=== PATIENT | male | born 1955 | race Caucasian/White ===

== ENCOUNTER 2017-01-20 11:27 | Outpatient (CLI) | payer OTHER ==
--- NOTE | 2017-01-20 12:40 | DIAGNOSTIC IMAGING REPORT ---
PROCEDURE: XR CERVICAL SPINE 4 OR 5 VIEW INDICATION: SHOULDER PAIN RIGHT TECHNIQUE: Five views. COMPARISON: None. FINDINGS: Severe spondylosis C6-7 with bilateral foraminal impingement. There is also spondylosis and spondylolisthesis at C4-5 with foraminal impingement on the right. IMPRESSION: 1. Spondylosis C4-5 and C6-7. Foraminal stenosis at C4-5 on the right and bilaterally C 6-7.
--- NOTE | 2017-01-20 13:28 | DIAGNOSTIC IMAGING REPORT ---
PROCEDURE: XR SHOULDER 2 OR MORE VW-RIGHT INDICATION: SHOULDER PAIN RIGHT TECHNIQUE: Three views. COMPARISON: None. FINDINGS: Severe right glenohumeral osteoarthritis. No fracture or dislocation. IMPRESSION: 1. Severe glenohumeral osteoarthritis.
== END 2017-01-20 23:00 | disposition home or self-care (01) ==
LOC: XR SRH 11:27
DX: M19.011 Primary osteoarthritis, right shoulder (principal); M47.812 Spondylosis without myelopathy or radiculopathy, cervical region; M48.02 Spinal stenosis, cervical region

== ENCOUNTER 2017-02-08 06:48 | Emergency (ER) | payer OTHER ==
--- NOTE | 2017-02-08 10:03 | ED ORDER SUMMARY ---
..... Patient: MONICA CURRIE OrderSheet [facility] VisitID: [id number] [place] [address] 61y, M Registration Date/Time: 02/08/2017 ORDER SHEET Weight: 79.3 kg (stated) Allergies: No Known Drug Allergy GENERAL ORDERS: EKG - ER Stat (07:02/08/2017 Kenny R.NArnoldo verbal order read back to Sonam TOVAR) (7:12 TBergley) Cardiac Panel Stat (07:02/08/2017 Sonam TOVAR) (Ack 7:19 TBergley) (7:20 SReitz R.N.) BNP Urgent (:02/08/2017 Sonam TOVAR) (Ack 7:19 TBergley) (7:20 SReitz R.N.) CRP Urgent (07:02/08/2017 Sonam TOVAR) (Ack 7:19 TBergley) (7:20 SReitz R.N.) PCT (Procalcitonin) Urgent (07:02/08/2017 Sonam TOVAR) (Ack 7:19 TBergley) (7:20 SReitz R.N.) Chest 1V Urgent (07:02/08/2017 Sonam TOVAR) (Ack 7:19 SReitz R.N.) (Ack 7:19 TBergley) (9:32 SReitz R.N.) MEDICATION ORDERS: IV FLUIDS: Zofran IV 4 mg (NOW) (07:17 02/08/2017 Sonam TOVAR) (7:21 SReitz R.N.) IV NS : initial bolus none -, then 100 mL/hr for 4h (NOW); Routine (07:02/08/2017 Sonam TOVAR) (Ack 7:23 SReitz R.N.) (7:26 SReitz R.N.) ORDER SHEET NOTES: [Electronically signed by Yoli Wagoner R.N. (10:51 02/08/2017)] [Electronically signed by Helio Peoples MD (22:57 02/11/2017)] [Electronically locked/signed by Yoli Wagoner R.N. (10:51 02/08/2017)]
--- NOTE | 2017-02-08 10:03 | ED CLINICAL REPORT ---
Clinical Report - Physicians/Mid Levels [facility] [address] [place] [address] 02/08/2017 6:49 Patient: MONICA CURRIE Time Seen: 07:14 Feb 08 2017. Arrived- By private vehicle. Historian- patient and spouse. CPT: ER phys charges level 4 plus (#[id number]). EKG interpretation (#[id number]). HISTORY OF PRESENT ILLNESS Chief Complaint: DYSPNEA, NAUSEA, VOMITING and DIZZINESS diaphoresis. ( Feels this all came on after starting ultram and meloxicam. HAs been off the meds for 48 hours.). 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 and is still present. At its maximum, severity described as moderate. When seen in the E.D., severity described as moderate. Modifying factors. Not worsened by anything. Not relieved by anything. The patient has had loss of appetite, fatigue and weakness. Similar symptoms previously: None. Recent medical care: The patient was seen recently at another facility in the office. Seen for shoulder and DJD pain. Evaluation/treatment- ultram and miloxicam. REVIEW OF SYSTEMS No fever, sore throat, cough, chest pain or abdominal pain. No diarrhea, black stools, skin rash, back pain or calf pain. No headache or blackouts. He has had difficulty breathing, nausea and vomiting. All systems otherwise negative, except as recorded above. PAST HISTORY Angina. Immunizations. Gastroesophageal Reflux Disease. Hypertension. --07:03 Reina Roque R.N. LA x3. -Stent times 3. . 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 Appendectomy. --07:03 Reina Roque R.N. Cardiac Surgery. --07:13 Yoli Wagoner R.N. Medications: Chlorthalidone Oral (Tablet 25 mg) 1 tablet. AmLODIPine Besylate Oral (Tablet 5 mg) 1 tablet, daily. Clopidogrel Bisulfate Oral (Tablet 75 mg) 1 tablet, daily. Nitroglycerin Sublingual 0.4 mg, PRN. Meloxicam Oral (Tablet 15 mg) 1 tablet. Tramadol HCL Oral 50 mg, 3x a day as needed. Atenolol Oral 25 mg, daily. HCTZ 25 mg. Lovastatin Oral, daily (uncertain of the dose). Allergies: No Known Drug Allergy. SOCIAL HISTORY Former smoker. ADDITIONAL NOTES The nursing notes have been reviewed. PHYSICAL EXAM Vital Signs: 02/08/2017 06:45 BP: 181/107. HR: 55. RR: 24. O2 saturation: 97%. Temp: 97.7 F. Pain level now: 10. Appearance: Alert. Eyes: Eyes normal inspection. ENT: Pharynx normal. Neck: Normal inspection. CVS: Normal heart rate and rhythm. Heart sounds normal. Pulses normal. Respiratory: No respiratory distress. Breath sounds normal. Chest nontender. Abdomen: Soft and nontender. Bowel sounds normal. Back: Normal inspection. Skin: Skin warm and dry. Normal skin color. No rash. No skin rash. Extremities: Extremities exhibit normal ROM. No calf tenderness. No lower extremity edema. Neuro: Oriented X 3. No motor deficit. No sensory deficit. Reflexes normal. LABS, X-RAYS, AND EKG EKG: Normal sinus rhythm. Normal P waves. Normal QRS complex. Q waves in lead V1 and V2. Normal ST and T waves. Prior EKG unavailable. The study has been interpreted contemporaneously. The study has been independently viewed by me. The EKG appears to be a good tracing. Chest X-ray: Normal Chest X-Ray. Laboratory Tests: CBC w Diff: (CHET: 02/08/2017 07:00) ( MsgRcvd 02/08/2017 07:26) Final results Test Result Flag Units (Reference) WHITE BLOOD COUNT 7.8 K/uL (4.5-11.5) RED BLOOD COUNT 4.78 M/uL (4.50-5.90) HEMOGLOBIN 14.6 gm/dL (13.5-17.5) HEMATOCRIT 43.2 % (41.0-53.0) MEAN CELL VOLUME 90 fL (80-100) MEAN CORPUSCULAR HGB 31 pg (26-34) MEAN CORPUSCULAR HGB CONC 34 g/dL (31-37) RED CELL DISTRIBUTION WIDTH 13.0 % (11.6-14.8) PLATELET COUNT 253 K/uL (150-400) NEUTROPHIL % 73.3 % (50-75) LYMPH % 20.8 L % (25-40) MONO % 4.9 % (3-14) EOSINOPHIL % 0.8 % (0-4) BASOPHIL % 0.2 % (0-2) BNP: (CHET: 02/08/2017 07:00) ( [facility] Final results Test Result Flag Units (Reference) B-TYPE NATRIURETIC PEPTIDE 19.3 pg/ml (5-100) [id number]: (CHET: 02/08/2017 07:00) ( [facility] 02/08/2017 08:26) Final results Test Result Flag Units (Reference) PROCALCITONIN <0.5 ng/mL (0-0.5) PCT Concentration: Interpretation : Risk/option for action PCT <=0.5 ng/mL : Systemic : Low risk forinfection(sepsis): progression to severeis not likely. : systemic infection.Local bacterial : CAUTION-PCT levelsinfection is : below 0.5 ng/mL do notpossible. : exclude an infection,because localizedinfections (withoutsystemic signs) may beassociated with suchlow levels. If PCT ismeasured very earlyafter a bacterialchallenge (usually <6hours), these valuesmay still be low. Inthis case PCT shouldbe re-assessed 6-24hours later. PCT >0.5 and : Systemic infection: Moderate risk for<= 2 ng/mL : (sepsis) is : progression to severepossible, but : systemic infection.other conditions : The patient should beare known to : closely monitoredelevate PCT. : both clinically andby re-assessing PCTwithin 6-24 hours. PCT > 2 ng/mL : Systemic infection: High risk for(sepsis) is likely: progression to severeunless other : systemic infection.causes are known. : PCT >= 10 ng/mL : Important systemic: High likelihood ofinflammatory : severe sepsis orresponse, almost : septic shock.exclusively due to:severe bacterial :sepsis or septic :shock. : CHEM 13 PANEL: (CHET: 02/08/2017 07:00) ( MsgRcvd 02/08/2017 08:59) Final results Test Result Flag Units (Reference) GLUCOSE 226 H mg/dL (70-110) BUN 16 mg/dL (7-18) CREATININE 1.2 mg/dL (0.6-1.3) Estimated GFR >60 mL/min Estimated GFR- >60 mL/min Note: Persistent reduction over 3 months in eGFR<60 mL/min/1.73 m2 defines CKD. Patients with eGFR values>=60 mL/min/1.73 m2 may also have CKD if evidence ofpersistent proteinuria. Additional information may be foundat www.kidney.org. SODIUM 137 mmol/L (136-145) POTASSIUM 3.0 L mmol/L (3.5-5.1) CHLORIDE 98 mmol/L (98-107) CARBON DIOXIDE 27 mmol/L (21-32) CALCIUM 9.7 mg/dL (8.5-10.1) TOTAL PROTEIN 8.4 H g/dL (6.4-8.2) ALBUMIN 4.5 g/dL (3.3-5.0) BILIRUBIN, TOTAL 0.7 mg/dL (0.0-1.0) ALKALINE PHOSPHATASE 76 U/L (46-116) AST (SGOT) 25 U/L (15-37) ALT (SGPT) 61 U/L (12-78) CPK 178 U/L (24-260) MAGNESIUM 1.8 mg/dL (1.8-2.4) TROPONIN I <0.05 L ng/mL (0.00-1.5) TROPONIN REFERENCE RANGE:<0.1 NEGATIVE0.1-1.5 INDETERMINANT>1.5 POSITIVE C-REACTIVE PROTEIN < 0.2 mg/dL (0.0-0.9) . PROGRESS AND PROCEDURES Course of Care: 09:51 02/08/17. Feels much better after getting IV fluids and zofran . HAs no further dyspnea, nausea or diaphroresis. Pt says this all started a month ago when he started his ultram and miloxicam. Pt stopped the meds 48 hours ago and has felt better being off them. K+ low due to emesis BS high: Discussed with patient and he is diabetic on metformin. Patient/family counseled. Disposition: Discharged. Condition: stable and improved. CLINICAL IMPRESSION Nausea , vomiting , diaphoresis and dyspnea due to medication intolerance. Chronic pain. Hypokalemia due to emesis. INSTRUCTIONS No strenuous activity. Rest. Take clear liquids only (frequent sips) for the next 4 hours until better. Advance diet as tolerated. Warnings: Further evaluation is necessary. GENERAL WARNINGS: Return or contact your physician immediately if your condition worsens or changes unexpectedly, if not improving as expected, or if other problems arise. Prescription Medications: Oxycodone/APAP 5 mg/325 mg: take 1-2 tablets orally every 4 hours as needed for pain. Dispense twenty-five (25). No refill. Soma 350 mg: Take 1 orally every 6 hours as needed for muscle spasm. Dispense twenty (20). No refills. Substitution is permissible. Kcl 20 meq po q day for 3 days. OTC Medications: Take ibuprofen (Advil, Nuprin, etc.) according to label instructions. Available over the counter. Follow-up: Return to the emergency department If worse. Follow up with your doctor Thursday in five days as scheduled. Understanding of the discharge instructions verbalized by patient. (Electronically signed by Helio Peoples MD 02/11/2017 22:57)
--- NOTE | 2017-02-08 10:03 | ED NURSING NOTES ---
Clinical Report - Nurses [place] [address] [place] [address] 02/08/2017 6:49 Patient: MONICA CURRIE TRIAGE Triage time 06:50. Acuity: LEVEL 2. Chief Complaint: CHILLS, ACTING DIFFERENTLY, FATIGUE, DIZZINESS, WEAKNESS, CONFUSION, DYSPNEA, NAUSEA, VOMITING and BACK PAIN. --07:05 Reina Roque R.N. 06:45 02/08/17. BP: 181/107 taken on the left arm, while lying. HR: 55 (regular and bradycardic). RR: 24 (regular and labored). O2 saturation: 97% on room air. Temp: 97.7 F (oral). Pain level now: 06/30. --07:05 Reina Roque R.N. Weight: 79.3 kg stated. Height/Length: 68 inches Per Patient. BMI: 26.6. --07:05 Reina Roque R.N. Medications Atenolol Oral 25 mg, daily. HCTZ 25 mg. Lovastatin Oral, daily (uncertain of the dose). --06:59 Reina Roque R.N. Tramadol HCL Oral 50 mg, 3x a day as needed. --07:00 Reina Roque R.N. Meloxicam Oral (Tablet 15 mg) 1 tablet. --07:00 Reina Roque R.N. Nitroglycerin Sublingual 0.4 mg, PRN. --07:01 Reina Roque R.N. Clopidogrel Bisulfate Oral (Tablet 75 mg) 1 tablet, daily. --07:01 Reina Roque R.N. AmLODIPine Besylate Oral (Tablet 5 mg) 1 tablet, daily. --07:02 Reina Roque R.N. Chlorthalidone Oral (Tablet 25 mg) 1 tablet. --07:02 Reina Roque R.N. Allergies No Known Drug Allergy. --06:59 Reina Roque R.N. History Arrived by private vehicle. Historian: patient. Accompanied by family. Primary physician (theron). Onset was gradual. (started Thursday, worse since Thursday). SOCIAL HX: Never smoker. History of drug use: marijuana. Recently used drugs days ago. No alcohol use. No infectious disease exposure. ABUSE ASSESSMENT: No report of abuse. SELF HARM ASSESSMENT: A self harm assessment was performed. The patient answered "no" to the question "Have you recently felt down, depressed, or hopeless?", "Have you noticed less interest or pleasure in doing things?", "Do you have thoughts of harming or killing yourself?", "Are you here because you tried to hurt yourself?", "Have you ever tried to hurt yourself before today?", "Have you recently had thoughts about harming or killing others?" and "Do you have any dangerous items in your possession?". FALL RISK ASSESSMENT: Fall risk assessment completed. No fall risk identified. NUTRITIONAL RISK ASSESSMENT: The nutritional risk assessment revealed no deficiencies. FUNCTIONAL ASSESSMENT: Functional assessment: no impairments noted. LEARNING NEEDS ASSESSMENT: The learning needs assessment revealed no barriers. SKIN INTEGRITY ASSESSMENT: Skin integrity risk assessment completed. No skin integrity risk identified. --07:05 Reina Roque R.N. PROBLEMS: Angina. Immunizations. Gastroesophageal Reflux Disease. Hypertension. --07:03 Reina Roque R.N. MD x3. --07:13 Yoli Wagoner R.N. 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 Appendectomy. --07:03 Reina Roque R.N. Cardiac Surgery. --07:13 Yoli Wagoner R.N. Interventions ID band on patient. --07:05 Reina Roque R.N. PHYSICAL ASSESSMENT Ambulatory to room. GENERAL / NEURO / PSYCH: Alert. Oriented X 4. Appears anxious and in distress. HEENT: Pupils equal, round and reactive to light. No facial asymmetry noted. Mucous membranes are pink. RESPIRATORY: Mild respiratory distress. Chest nontender. Breath sounds within normal limits. CVS: Capillary refill less than 2 seconds. Pulses within normal limits. GI / : Abdomen soft. SKIN: Skin is pale. Skin is profusely diaphoretic. --07:06 Reina Roque R.N. NURSING PROGRESS NOTES Two patient identifiers checked. Call light placed in reach. Side rails up x 1. Bed placed in lowest position. Brakes of bed on. --07:06 Reina Roque R.N. Patient ready for evaluation- chart flagged. --07:06 Reina Roque R.N. 07:00 02/08/2017 Site #1 started via IV in the right antecubital space with an 20g angiocath, with aseptic technique and good blood return; one attempt. Blood drawn: rainbow set. Labeled in the presence of the patient and sent to the lab. Saline lock flushed with 10 mL saline. --07:07 Reina Roque R.N. ( MD at bedside). --07:08 Reina Roque R.N. Care transferred and report received (from CHIRAG Huang). --07:12 Yoli Wagoner R.N. EKG time: (742). EKG was ordered, performed by a tech and shown to the ED physician. --07:16 Glory De Leon 07:21 02/08/2017 Zofran (Ondansetron HCl) IVP 4 mg given over 1 minute(s) via site #1. Allergies verified and confirmed 5 rights. IV patency established. IV site checked: no pain, redness, or swelling. IV flushed thoroughly pre- and post-medication administration. --07:21 Yoli Wagoner R.N. 07:21 02/08/17. BP: 163/92. HR: 66. RR: 18. O2 saturation: 100%. --07:23 Yoli Wagoner R.N. ( Fist contact with pt. Pt. appears anxious. c/o nausea at this time. Medicated and will continue to monitor.). --07:23 Yoli Wagoner R.N. 07:26 02/08/2017 Started bag #1 1000 mL IV Fluids IV NS (Saline); at 100 mL/hr over 6 hour(s) via site #1 via IV pump. Allergies verified and confirmed 5 rights. IV patency established. IV site checked: no pain, redness, or swelling. IV flushed thoroughly pre- and post-medication administration. --07:26 Yoli Wagonre R.N. 08:11 02/08/17. BP: 154/89. HR: 70. RR: 20. O2 saturation: 98%. --08:11 Yoli Wagoner R.N. 09:32 02/08/17. BP: 129/96. HR: 62. RR: 16. O2 saturation: 100%. --09:34 Yoli Wagoner R.N. 10:19 02/08/2017 IV Fluids IV NS Discontinued: bag #1 infused. Total amount infused: 300 mL. IV patency established. IV site checked: no pain, redness, or swelling. IV flushed thoroughly. --10:19 Yoli Wagoner R.N. DISPOSITION / DISCHARGE 10:18 02/08/17. BP: 144/84. HR: 68. RR: 16. O2 saturation: 99%. Temp: 98.2 F. Pain level now 0/10. --10:19 Yoli Wagoner R.N. 10:20 02/08/2017 Site #1 removed upon discharge. Catheter intact. Manual pressure and bandaid applied. --10:20 Yoli Wagoner R.N. Departure time: 10:20. Condition at departure: stable. No learning barriers present. Discharge instructions provided and reviewed with the patient. Reviewed medication(s) side effects, precautions, dosing and course information. Prescription(s) given to the patient. Reviewed referral to family practice for followup. Patient verbalized understanding. Written instructions provided in [place]. The patient was discharged home and accompanied by carpet or rug layer helper. He left the Emergency Department ambulatory and via private vehicle. Vice President Supply Chain driving. Medication list reviewed and validated. --10:20 Yoli Wagoner R.N. Locked/Released at 02/08/2017 10:51 by Yoli Wagoner R.N.
--- NOTE | 2017-02-08 10:03 | ED CLINICAL REPORT ---
Clinical Report - Physicians/Mid Levels [facility] [address] [place] [address] 02/08/2017 6:49 Patient: MONICA CURRIE Time Seen: 07:14 Feb 08 2017. Arrived- By private vehicle. Historian- patient and spouse. CPT: ER phys charges level 4 plus (#[id number]). EKG interpretation (#[id number]). HISTORY OF PRESENT ILLNESS Chief Complaint: DYSPNEA, NAUSEA, VOMITING and DIZZINESS diaphoresis. ( Feels this all came on after starting ultram and meloxicam. HAs been off the meds for 48 hours.). 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 and is still present. At its maximum, severity described as moderate. When seen in the E.D., severity described as moderate. Modifying factors. Not worsened by anything. Not relieved by anything. The patient has had loss of appetite, fatigue and weakness. Similar symptoms previously: None. Recent medical care: The patient was seen recently at another facility in the office. Seen for shoulder and DJD pain. Evaluation/treatment- ultram and miloxicam. REVIEW OF SYSTEMS No fever, sore throat, cough, chest pain or abdominal pain. No diarrhea, black stools, skin rash, back pain or calf pain. No headache or blackouts. He has had difficulty breathing, nausea and vomiting. All systems otherwise negative, except as recorded above. PAST HISTORY Angina. Immunizations. Gastroesophageal Reflux Disease. Hypertension. --07:03 Reina Roque R.N. [place] x3. -Stent times 3. . 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 Appendectomy. --07:03 Reina Roque R.N. Cardiac Surgery. --07:13 Yoli Wagoner R.N. Medications: Chlorthalidone Oral (Tablet 25 mg) 1 tablet. AmLODIPine Besylate Oral (Tablet 5 mg) 1 tablet, daily. Clopidogrel Bisulfate Oral (Tablet 75 mg) 1 tablet, daily. Nitroglycerin Sublingual 0.4 mg, PRN. Meloxicam Oral (Tablet 15 mg) 1 tablet. Tramadol HCL Oral 50 mg, 3x a day as needed. Atenolol Oral 25 mg, daily. HCTZ 25 mg. Lovastatin Oral, daily (uncertain of the dose). Allergies: No Known Drug Allergy. SOCIAL HISTORY Former smoker. ADDITIONAL NOTES The nursing notes have been reviewed. PHYSICAL EXAM Vital Signs: 02/08/2017 06:45 BP: 181/107. HR: 55. RR: 24. O2 saturation: 97%. Temp: 97.7 F. Pain level now: 10. Appearance: Alert. Eyes: Eyes normal inspection. ENT: Pharynx normal. Neck: Normal inspection. CVS: Normal heart rate and rhythm. Heart sounds normal. Pulses normal. Respiratory: No respiratory distress. Breath sounds normal. Chest nontender. Abdomen: Soft and nontender. Bowel sounds normal. Back: Normal inspection. Skin: Skin warm and dry. Normal skin color. No rash. No skin rash. Extremities: Extremities exhibit normal ROM. No calf tenderness. No lower extremity edema. Neuro: Oriented X 3. No motor deficit. No sensory deficit. Reflexes normal. LABS, X-RAYS, AND EKG EKG: Normal sinus rhythm. Normal P waves. Normal QRS complex. Q waves in lead V1 and V2. Normal ST and T waves. Prior EKG unavailable. The study has been interpreted contemporaneously. The study has been independently viewed by me. The EKG appears to be a good tracing. Chest X-ray: Normal Chest X-Ray. Laboratory Tests: CBC w Diff: (CHET: 02/08/2017 07:00) ( MsgRcvd 02/08/2017 07:26) Final results Test Result Flag Units (Reference) WHITE BLOOD COUNT 7.8 K/uL (4.5-11.5) RED BLOOD COUNT 4.78 M/uL (4.50-5.90) HEMOGLOBIN 14.6 gm/dL (13.5-17.5) HEMATOCRIT 43.2 % (41.0-53.0) MEAN CELL VOLUME 90 fL (80-100) MEAN CORPUSCULAR HGB 31 pg (26-34) MEAN CORPUSCULAR HGB CONC 34 g/dL (31-37) RED CELL DISTRIBUTION WIDTH 13.0 % (11.6-14.8) PLATELET COUNT 253 K/uL (150-400) NEUTROPHIL % 73.3 % (50-75) LYMPH % 20.8 L % (25-40) MONO % 4.9 % (3-14) EOSINOPHIL % 0.8 % (0-4) BASOPHIL % 0.2 % (0-2) BNP: (CHET: 02/08/2017 07:00) ( [facility] 02/08/2017 07:54) Final results Test Result Flag Units (Reference) B-TYPE NATRIURETIC PEPTIDE 19.3 pg/ml (5-100) [id number]: (CHET: 02/08/2017 07:00) ( [facility] 02/08/2017 08:26) Final results Test Result Flag Units (Reference) PROCALCITONIN <0.5 ng/mL (0-0.5) PCT Concentration: Interpretation : Risk/option for action PCT <=0.5 ng/mL : Systemic : Low risk forinfection(sepsis): progression to severeis not likely. : systemic infection.Local bacterial : CAUTION-PCT levelsinfection is : below 0.5 ng/mL do notpossible. : exclude an infection,because localizedinfections (withoutsystemic signs) may beassociated with suchlow levels. If PCT ismeasured very earlyafter a bacterialchallenge (usually <6hours), these valuesmay still be low. Inthis case PCT shouldbe re-assessed 6-24hours later. PCT >0.5 and : Systemic infection: Moderate risk for<= 2 ng/mL : (sepsis) is : progression to severepossible, but : systemic infection.other conditions : The patient should beare known to : closely monitoredelevate PCT. : both clinically andby re-assessing PCTwithin 6-24 hours. PCT > 2 ng/mL : Systemic infection: High risk for(sepsis) is likely: progression to severeunless other : systemic infection.causes are known. : PCT >= 10 ng/mL : Important systemic: High likelihood ofinflammatory : severe sepsis orresponse, almost : septic shock.exclusively due to:severe bacterial :sepsis or septic :shock. : CHEM 13 PANEL: (CHET: 02/08/2017 07:00) ( MsgRcvd 02/08/2017 08:59) Final results Test Result Flag Units (Reference) GLUCOSE 226 H mg/dL (70-110) BUN 16 mg/dL (7-18) CREATININE 1.2 mg/dL (0.6-1.3) Estimated GFR >60 mL/min Estimated GFR- >60 mL/min Note: Persistent reduction over 3 months in eGFR<60 mL/min/1.73 m2 defines CKD. Patients with eGFR values>=60 mL/min/1.73 m2 may also have CKD if evidence ofpersistent proteinuria. Additional information may be foundat www.kidney.org. SODIUM 137 mmol/L (136-145) POTASSIUM 3.0 L mmol/L (3.5-5.1) CHLORIDE 98 mmol/L (98-107) CARBON DIOXIDE 27 mmol/L (21-32) CALCIUM 9.7 mg/dL (8.5-10.1) TOTAL PROTEIN 8.4 H g/dL (6.4-8.2) ALBUMIN 4.5 g/dL (3.3-5.0) BILIRUBIN, TOTAL 0.7 mg/dL (0.0-1.0) ALKALINE PHOSPHATASE 76 U/L (46-116) AST (SGOT) 25 U/L (15-37) ALT (SGPT) 61 U/L (12-78) CPK 178 U/L (24-260) MAGNESIUM 1.8 mg/dL (1.8-2.4) TROPONIN I <0.05 L ng/mL (0.00-1.5) TROPONIN REFERENCE RANGE:<0.1 NEGATIVE0.1-1.5 INDETERMINANT>1.5 POSITIVE C-REACTIVE PROTEIN < 0.2 mg/dL (0.0-0.9) . PROGRESS AND PROCEDURES Course of Care: 09:51 02/08/17. Feels much better after getting IV fluids and zofran . HAs no further dyspnea, nausea or diaphroresis. Pt says this all started a month ago when he started his ultram and miloxicam. Pt stopped the meds 48 hours ago and has felt better being off them. K+ low due to emesis BS high: Discussed with patient and he is diabetic on metformin. Patient/family counseled. Disposition: Discharged. Condition: stable and improved. CLINICAL IMPRESSION Nausea , vomiting , diaphoresis and dyspnea due to medication intolerance. Chronic pain. Hypokalemia due to emesis. INSTRUCTIONS No strenuous activity. Rest. Take clear liquids only (frequent sips) for the next 4 hours until better. Advance diet as tolerated. Warnings: Further evaluation is necessary. GENERAL WARNINGS: Return or contact your physician immediately if your condition worsens or changes unexpectedly, if not improving as expected, or if other problems arise. Prescription Medications: Oxycodone/APAP 5 mg/325 mg: take 1-2 tablets orally every 4 hours as needed for pain. Dispense twenty-five (25). No refill. Soma 350 mg: Take 1 orally every 6 hours as needed for muscle spasm. Dispense twenty (20). No refills. Substitution is permissible. Kcl 20 meq po q day for 3 days. OTC Medications: Take ibuprofen (Advil, Nuprin, etc.) according to label instructions. Available over the counter. Follow-up: Return to the emergency department If worse. Follow up with your doctor Thursday in five days as scheduled. Understanding of the discharge instructions verbalized by patient. (Electronically signed by Helio Peoples MD 02/11/2017 22:57)
--- NOTE | 2017-02-08 10:03 | ED NURSING NOTES ---
Clinical Report - Nurses [place] [address] [place] [address] 02/08/2017 6:49 Patient: MONICA CURRIE TRIAGE Triage time 06:50. Acuity: LEVEL 2. Chief Complaint: CHILLS, ACTING DIFFERENTLY, FATIGUE, DIZZINESS, WEAKNESS, CONFUSION, DYSPNEA, NAUSEA, VOMITING and BACK PAIN. --07:05 Reina Roque R.N. 06:45 02/08/17. BP: 181/107 taken on the left arm, while lying. HR: 55 (regular and bradycardic). RR: 24 (regular and labored). O2 saturation: 97% on room air. Temp: 97.7 F (oral). Pain level now: 06/30. --07:05 Reina Roque R.N. Weight: 79.3 kg stated. Height/Length: 68 inches Per Patient. BMI: 26.6. --07:05 Reina Roque R.N. Medications Atenolol Oral 25 mg, daily. HCTZ 25 mg. Lovastatin Oral, daily (uncertain of the dose). --06:59 Reina Roque R.N. Tramadol HCL Oral 50 mg, 3x a day as needed. --07:00 Reina Roque R.N. Meloxicam Oral (Tablet 15 mg) 1 tablet. --07:00 Reina Roque R.N. Nitroglycerin Sublingual 0.4 mg, PRN. --07:01 Reina Roque R.N. Clopidogrel Bisulfate Oral (Tablet 75 mg) 1 tablet, daily. --07:01 Reina Roque R.N. AmLODIPine Besylate Oral (Tablet 5 mg) 1 tablet, daily. --07:02 Reina Roque R.N. Chlorthalidone Oral (Tablet 25 mg) 1 tablet. --07:02 Reina Roque R.N. Allergies No Known Drug Allergy. --06:59 Reina Roque R.N. History Arrived by private vehicle. Historian: patient. Accompanied by family. Primary physician (theron). Onset was gradual. (started Thursday, worse since Thursday). SOCIAL HX: Never smoker. History of drug use: marijuana. Recently used drugs days ago. No alcohol use. No infectious disease exposure. ABUSE ASSESSMENT: No report of abuse. SELF HARM ASSESSMENT: A self harm assessment was performed. The patient answered "no" to the question "Have you recently felt down, depressed, or hopeless?", "Have you noticed less interest or pleasure in doing things?", "Do you have thoughts of harming or killing yourself?", "Are you here because you tried to hurt yourself?", "Have you ever tried to hurt yourself before today?", "Have you recently had thoughts about harming or killing others?" and "Do you have any dangerous items in your possession?". FALL RISK ASSESSMENT: Fall risk assessment completed. No fall risk identified. NUTRITIONAL RISK ASSESSMENT: The nutritional risk assessment revealed no deficiencies. FUNCTIONAL ASSESSMENT: Functional assessment: no impairments noted. LEARNING NEEDS ASSESSMENT: The learning needs assessment revealed no barriers. SKIN INTEGRITY ASSESSMENT: Skin integrity risk assessment completed. No skin integrity risk identified. --07:05 Reina Roque R.N. PROBLEMS: Angina. Immunizations. Gastroesophageal Reflux Disease. Hypertension. --07:03 Reina Roque R.N. [place] x3. --07:13 Yoli Wagoner R.N. 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 Appendectomy. --07:03 Reina Roque R.N. Cardiac Surgery. --07:13 Yoli Wagoner R.N. Interventions ID band on patient. --07:05 Reina Roque R.N. PHYSICAL ASSESSMENT Ambulatory to room. GENERAL / NEURO / PSYCH: Alert. Oriented X 4. Appears anxious and in distress. HEENT: Pupils equal, round and reactive to light. No facial asymmetry noted. Mucous membranes are pink. RESPIRATORY: Mild respiratory distress. Chest nontender. Breath sounds within normal limits. CVS: Capillary refill less than 2 seconds. Pulses within normal limits. GI / : Abdomen soft. SKIN: Skin is pale. Skin is profusely diaphoretic. --07:06 Reina Roque R.N. NURSING PROGRESS NOTES Two patient identifiers checked. Call light placed in reach. Side rails up x 1. Bed placed in lowest position. Brakes of bed on. --07:06 Reina Roque R.N. Patient ready for evaluation- chart flagged. --07:06 Reina Roque R.N. 07:00 02/08/2017 Site #1 started via IV in the right antecubital space with an 20g angiocath, with aseptic technique and good blood return; one attempt. Blood drawn: rainbow set. Labeled in the presence of the patient and sent to the lab. Saline lock flushed with 10 mL saline. --07:07 Reina Roque R.N. ( MD at bedside). --07:08 Reina Roque R.N. Care transferred and report received (from CHIRAG Huang). --07:12 Yoli Wagoner R.N. EKG time: (262). EKG was ordered, performed by a tech and shown to the ED physician. --07:16 Glory De Leon 07:21 02/08/2017 Zofran (Ondansetron HCl) IVP 4 mg given over 1 minute(s) via site #1. Allergies verified and confirmed 5 rights. IV patency established. IV site checked: no pain, redness, or swelling. IV flushed thoroughly pre- and post-medication administration. --07:21 Yoli Wagoner R.N. 07:21 02/08/17. BP: 163/92. HR: 66. RR: 18. O2 saturation: 100%. --07:23 Yoli Wagoner R.N. ( Fist contact with pt. Pt. appears anxious. c/o nausea at this time. Medicated and will continue to monitor.). --07:23 Yoli Wagoner R.N. 07:26 02/08/2017 Started bag #1 1000 mL IV Fluids IV NS (Saline); at 100 mL/hr over 6 hour(s) via site #1 via IV pump. Allergies verified and confirmed 5 rights. IV patency established. IV site checked: no pain, redness, or swelling. IV flushed thoroughly pre- and post-medication administration. --07:26 Yoli Wagoner R.N. 08:11 02/08/17. BP: 154/89. HR: 70. RR: 20. O2 saturation: 98%. --08:11 Yoli Wagoner R.N. 09:32 02/08/17. BP: 129/96. HR: 62. RR: 16. O2 saturation: 100%. --09:34 Yoli Wagoner R.N. 10:19 02/08/2017 IV Fluids IV NS Discontinued: bag #1 infused. Total amount infused: 300 mL. IV patency established. IV site checked: no pain, redness, or swelling. IV flushed thoroughly. --10:19 Yoli Wagoner R.N. DISPOSITION / DISCHARGE 10:18 02/08/17. BP: 144/84. HR: 68. RR: 16. O2 saturation: 99%. Temp: 98.2 F. Pain level now 0/10. --10:19 Yoli Wagoenr R.N. 10:20 02/08/2017 Site #1 removed upon discharge. Catheter intact. Manual pressure and bandaid applied. --10:20 Yoli Wagoner R.N. Departure time: 10:20. Condition at departure: stable. No learning barriers present. Discharge instructions provided and reviewed with the patient. Reviewed medication(s) side effects, precautions, dosing and course information. Prescription(s) given to the patient. Reviewed referral to family practice for followup. Patient verbalized understanding. Written instructions provided in Palestinian. The patient was discharged home and accompanied by brake repairer. He left the Emergency Department ambulatory and via private vehicle. Scientific Informatics Leader driving. Medication list reviewed and validated. --10:20 Yoli Wagoner R.N. Locked/Released at 02/08/2017 10:51 by Yoli Wagoner R.N.
--- NOTE | 2017-02-08 10:03 | ED ORDER SUMMARY ---
..... Patient: MONICA CURRIE OrderSheet [facility] VisitID: [id number] [place] [address] 61y, M Registration Date/Time: 02/08/2017 ORDER SHEET Weight: 79.3 kg (stated) Allergies: No Known Drug Allergy GENERAL ORDERS: EKG - ER Stat (07:02/08/2017 Kenny R.NArnoldo verbal order read back to Sonam TOVAR) (7:12 TBergley) Cardiac Panel Stat (07:02/08/2017 Sonam TOVAR) (Ack 7:19 TBergley) (7:20 SReitz R.N.) BNP Urgent (:02/08/2017 Sonam TOVAR) (Ack 7:19 TBergley) (7:20 SReitz R.N.) CRP Urgent (07:02/08/2017 Sonam TOVAR) (Ack 7:19 TBergley) (7:20 SReitz R.N.) PCT (Procalcitonin) Urgent (07:02/08/2017 Sonam TOVAR) (Ack 7:19 TBergley) (7:20 SReitz R.N.) Chest 1V Urgent (07:02/08/2017 Sonam TOVAR) (Ack 7:19 SReitz R.N.) (Ack 7:19 TBergley) (9:32 SReitz R.N.) MEDICATION ORDERS: IV FLUIDS: Zofran IV 4 mg (NOW) (07:17 02/08/2017 Sonam TOVAR) (7:21 SReitz R.N.) IV NS : initial bolus none -, then 100 mL/hr for 4h (NOW); Routine (07:02/08/2017 Sonam TOVAR) (Ack 7:23 SReitz R.N.) (7:26 SReitz R.N.) ORDER SHEET NOTES: [Electronically signed by Yoli Wagoner R.N. (10:51 02/08/2017)] [Electronically signed by Helio Peoples MD (22:57 02/11/2017)] [Electronically locked/signed by Yoli Wagoner R.N. (10:51 02/08/2017)]
--- NOTE | 2017-02-08 10:06 | DIAGNOSTIC IMAGING REPORT ---
PROCEDURE: XR CHEST 1 VIEW INDICATION: SHORTNESS OF BREATH TECHNIQUE: Portable AP view (0805 hours). COMPARISON: Compared to chest x-ray on 11/15/2015. FINDINGS: Allowing for overlying wires and electrodes, lungs are clear. Heart and mediastinum are normal. Thorax is normal. IMPRESSION: 1. Negative chest.
--- NOTE | 2017-02-11 22:57 | ED MAR SUMMARY ---
..... Medication Administration Record [facility] [address] [place] [address] Patient: MONICA CURRIE Visit ID: [id number] 61y, M Weight: 79.3 kg Height/Length: 68 in BMI: 26.6 ALLERGIES: No Known Drug Allergy Given 07:21 02/08/2017 Yoli Wagoner R.N. Medication Administered: ZOFRAN [IVP] (ONDANSETRON HCL), Dose: 4 mg IVP over 1 minute(s), Site: #1 right AC. Medication Ordered: Zofran IV 4 mg (NOW). Start 07:26 02/08/2017 Yoli Wagoner R.N., Stop 10:19 02/08/2017 Yoli Wagoner R.N. Medication Administered: IV NS (SALINE), Dose: IV Fluids over 6 hour(s), Rate: 100 mL/hr, Dispensed: 1000 mL bag, Site: #1 right AC. Medication Ordered: IV NS : initial bolus none -, then 100 mL/hr for 4h (NOW); Routine.
--- NOTE | 2017-02-11 22:57 | ED MED RECONCILIATION SUMMARY ---
Patient: MONICA CURIRE Medication Reconciliation Report [facility] VisitID: [id number] [address] [place] [address] 61y, M Registration Date/Time: 02/08/2017 Weight: 79.3 kg Height/Length: 68 in. BMI: 26.6 ALLERGIES: No Known Drug Allergy The patient's Home Medications are listed below: THE FOLLOWING MEDICATIONS NEED TO BE RECONCILED: AmLODIPine Besylate Oral (5 mg) 1 tablet, daily Atenolol Oral 25 mg, daily Chlorthalidone Oral (25 mg) 1 tablet Clopidogrel Bisulfate Oral (75 mg) 1 tablet, daily HCTZ 25 mg Lovastatin Oral, daily, uncertain of the dose Meloxicam Oral (15 mg) 1 tablet Nitroglycerin Sublingual 0.4 mg, PRN Tramadol HCL Oral 50 mg, 3x a day The source(s) of the original Home Medication information: Not obtained. The following Medications were given to the patient in the Emergency Department: Zofran [IVP] IVP 4 mg, administered: 02/08/2017 7:21:00 AM IV NS IV Fluids bolus 0, then 100 mL/hr, administered: 02/08/2017 7:26:00 AM The following Medications were prescribed to the patient: Take ibuprofen (Advil, Nuprin, etc.) according to label instructions. Available over the counter. -- Helio Peoples MD Kcl 20 meq po q day for 3 days. -- Helio Peoples MD Oxycodone/APAP 5 mg/325 mg: take 1-2 tablets orally every 4 hours as needed for pain. Dispense twenty-five (25). No refill. -- Helio Peoples MD Soma 350 mg: Take 1 orally every 6 hours as needed for muscle spasm. Dispense twenty (20). No refills. Substitution is permissible. -- Helio Peoples MD
--- NOTE | 2017-02-11 22:57 | ED MED RECONCILIATION SUMMARY ---
Patient: MONICA CURRIE Medication Reconciliation Report [facility] VisitID: [id number] [address] [place] [address] 61y, M Registration Date/Time: 02/08/2017 Weight: 79.3 kg Height/Length: 68 in. BMI: 26.6 ALLERGIES: No Known Drug Allergy The patient's Home Medications are listed below: THE FOLLOWING MEDICATIONS NEED TO BE RECONCILED: AmLODIPine Besylate Oral (5 mg) 1 tablet, daily Atenolol Oral 25 mg, daily Chlorthalidone Oral (25 mg) 1 tablet Clopidogrel Bisulfate Oral (75 mg) 1 tablet, daily HCTZ 25 mg Lovastatin Oral, daily, uncertain of the dose Meloxicam Oral (15 mg) 1 tablet Nitroglycerin Sublingual 0.4 mg, PRN Tramadol HCL Oral 50 mg, 3x a day The source(s) of the original Home Medication information: Not obtained. The following Medications were given to the patient in the Emergency Department: Zofran [IVP] IVP 4 mg, administered: 02/08/2017 7:21:00 AM IV NS IV Fluids bolus 0, then 100 mL/hr, administered: 02/08/2017 7:26:00 AM The following Medications were prescribed to the patient: Take ibuprofen (Advil, Nuprin, etc.) according to label instructions. Available over the counter. -- Helio Peoples MD Kcl 20 meq po q day for 3 days. -- Helio Peoples MD Oxycodone/APAP 5 mg/325 mg: take 1-2 tablets orally every 4 hours as needed for pain. Dispense twenty-five (25). No refill. -- Helio Peoples MD Soma 350 mg: Take 1 orally every 6 hours as needed for muscle spasm. Dispense twenty (20). No refills. Substitution is permissible. -- Helio Peoples MD
--- NOTE | 2017-02-11 22:57 | ED DISCHARGE INSTRUCTIONS ---
Patient: MONICA CURRIE General Instructions [facility] VisitID: [id number] [place] [address] 61y, M Registration Date/Time: 02/08/2017 Nausea , vomiting , diaphoresis and dyspnea due to medication intolerance. Chronic pain. Hypokalemia due to emesis. INSTRUCTIONS No strenuous activity. Rest. Take clear liquids only (frequent sips) for the next 4 hours until better. Advance diet as tolerated. Warnings: Further evaluation is necessary. GENERAL WARNINGS: Return or contact your physician immediately if your condition worsens or changes unexpectedly, if not improving as expected, or if other problems arise. Prescription Medications: Oxycodone/APAP 5 mg/325 mg: take 1-2 tablets orally every 4 hours as needed for pain. Dispense twenty-five (25). No refill. Soma 350 mg: Take 1 orally every 6 hours as needed for muscle spasm. Dispense twenty (20). No refills. Substitution is permissible. Kcl 20 meq po q day for 3 days. OTC Medications: Take ibuprofen (Advil, Nuprin, etc.) according to label instructions. Available over the counter. Follow-up: Return to the emergency department If worse. Follow up with your doctor Thursday in five days as scheduled. Understanding of the discharge instructions verbalized by patient. ADDITIONAL INFORMATION Clear Liquid Diet Clear liquids are any liquid that you can see through as well as those that are very easy to digest. This is used while the body is recovering from irritation or infection of the stomach or intestinal tract. It may also be used before special procedures or surgery. This diet is to be used no more than three days. You may include the following items. Adults Adults should drink a total of 23 quarts of liquid per day. It may be easier to drink small frequent servings rather than a few large ones. Liquids can include: Fruit juices.Strained orange juice or lemonade (no pulp), apple, grape and cranberry juice, clear fruit drinks, sports drinks Beverages.Sport drinks, sodas, mineral water (plain or flavored), tea, black coffee, liquid gelatin (add twice the recommended amount of water) Soups.Clear broth, consomm, bouillon Desserts.Plain gelatin, popsicles, fruit juice bars Children Over 2 years old The following liquids are acceptable for children over age 2: Fruit juices.Strained orange juice or lemonade (no pulp), apple, grape and cranberry juice, clear fruit drinks Beverages. Sports drinks, sodas, mineral water (plain or flavored), tea, liquid gelatin (add twice the recommended amount of water) Soups. Clear broth, consomm, bouillon Desserts. Plain gelatin, popsicles, fruit juice bars Children under 2 years old Oral rehydration fluids such are available at drug stores and most grocery stores without a prescription. Oxycodone Hydrochloride, Acetaminophen Oral tablet What is this medicine? ACETAMINOPHEN; OXYCODONE (a set a JEAN mario alberto fen; ox i KOE done) is a pain reliever. It is used to treat mild to moderate pain. How should I use this medicine? Take this medicine by mouth with a full glass of water. Follow the directions on the prescription label. Take your medicine at regular intervals. Do not take your medicine more often than directed. Talk to your digital account supervisor regarding the use of this medicine in children. Special care may be needed. Patients over 65 years old may have a stronger reaction and need a smaller dose. What side effects may I notice from receiving this medicine? Side effects that you should report to your doctor or health manager critical care unit as soon as possible: allergic reactions like skin rash, itching or hives, swelling of the face, lips, or tongue breathing difficulties, wheezing confusion light headedness or fainting spells severe stomach pain yellowing of the skin or the whites of the eyes Side effects that usually do not require medical attention (report to your doctor or health manager critical care unit if they continue or are bothersome): dizziness drowsiness nausea vomiting What may interact with this medicine? alcohol antihistamines barbiturates like amobarbital, butalbital, butabarbital, methohexital, pentobarbital, phenobarbital, thiopental, and secobarbital benztropine drugs for bladder problems like solifenacin, trospium, oxybutynin, tolterodine, hyoscyamine, and methscopolamine drugs for breathing problems like ipratropium and tiotropium drugs for certain stomach or intestine problems like propantheline, homatropine methylbromide, glycopyrrolate, atropine, belladonna, and dicyclomine general anesthetics like etomidate, ketamine, nitrous oxide, propofol, desflurane, enflurane, halothane, isoflurane, and sevoflurane medicines for depression, anxiety, or psychotic disturbances medicines for sleep muscle relaxants naltrexone narcotic medicines (opiates) for pain phenothiazines like perphenazine, thioridazine, chlorpromazine, mesoridazine, fluphenazine, prochlorperazine, promazine, and trifluoperazine scopolamine tramadol trihexyphenidyl What if I miss a dose? If you miss a dose, take it as soon as you can. If it is almost time for your next dose, take only that dose. Do not take double or extra doses. Where should I keep my medicine? Keep out of the reach of children. This medicine can be abused. Keep your medicine in a safe place to protect it from theft. Do not share this medicine with anyone. Selling or giving away this medicine is dangerous and against the law. Store at room temperature between 20 and 25 degrees C (68 and 77 degrees F). Keep container tightly closed. Protect from light. This medicine may cause accidental overdose and if it is taken by other adults, children, or pets. Flush any unused medicine down the toilet to reduce the chance of harm. Do not use the medicine after the expiration date. What should I tell my health care provider before I take this medicine? They need to know if you have any of these conditions: brain tumor Crohn's disease, inflammatory bowel disease, or ulcerative colitis drink more than 3 alcohol containing drinks per day drug abuse or addiction head injury heart or circulation problems kidney disease or problems going to the bathroom liver disease lung disease, asthma, or breathing problems an unusual or allergic reaction to acetaminophen, oxycodone, other opioid analgesics, other medicines, foods, dyes, or preservatives or trying to get breast-feeding What should I watch for while using this medicine? Tell your doctor or health manager critical care unit if your pain does not go away, if it gets worse, or if you have new or a different type of pain. You may develop tolerance to the medicine. Tolerance means that you will need a higher dose of the medication for pain relief. Tolerance is normal and is expected if you take this medicine for a long time. Do not suddenly stop taking your medicine because you may develop a severe reaction. Your body becomes used to the medicine. This does NOT mean you are addicted. Addiction is a behavior related to getting and using a drug for a non-medical reason. If you have pain, you have a medical reason to take pain medicine. Your doctor will tell you how much medicine to take. If your doctor wants you to stop the medicine, the dose will be slowly lowered over time to avoid any side effects. You may get drowsy or dizzy. Do not drive, use machinery, or do anything that needs mental alertness until you know how this medicine affects you. Do not stand or sit up quickly, especially if you are an older patient. This reduces the risk of dizzy or fainting spells. Alcohol may interfere with the effect of this medicine. Avoid alcoholic drinks. There are different types of narcotic medicines (opiates) for pain. If you take more than one type at the same time, you may have more side effects. Give your health care provider a list of all medicines you use. Your doctor will tell you how much medicine to take. Do not take more medicine than directed. Call emergency for help if you have problems breathing. The medicine will cause constipation. Try to have a bowel movement at least every 2 to 3 days. If you do not have a bowel movement for 3 days, call your doctor or health manager critical care unit. Do not take Tylenol (acetaminophen) or medicines that have acetaminophen with this medicine. Too much acetaminophen can be very dangerous. Many nonprescription medicines contain acetaminophen. Always read the labels carefully to avoid taking more acetaminophen. You have been given the following additional information: Diet, Clear Liquid Oxycodone Hydrochloride, Acetaminophen Oral tablet No strenuous activity. Rest. (Electronically signed by Helio Peoples MD 02/11/2017 22:57)
--- NOTE | 2017-02-11 22:57 | ED MAR SUMMARY ---
..... Medication Administration Record [facility] [address] [place] [address] Patient: MONICA CURRIE Visit ID: [id number] 61y, M Weight: 79.3 kg Height/Length: 68 in BMI: 26.6 ALLERGIES: No Known Drug Allergy Given 07:21 02/08/2017 Yoli Wagoner R.N. Medication Administered: ZOFRAN [IVP] (ONDANSETRON HCL), Dose: 4 mg IVP over 1 minute(s), Site: #1 right AC. Medication Ordered: Zofran IV 4 mg (NOW). Start 07:26 02/08/2017 Yoli Wagoner R.N., Stop 10:19 02/08/2017 Yoli Wagoner R.N. Medication Administered: IV NS (SALINE), Dose: IV Fluids over 6 hour(s), Rate: 100 mL/hr, Dispensed: 1000 mL bag, Site: #1 right AC. Medication Ordered: IV NS : initial bolus none -, then 100 mL/hr for 4h (NOW); Routine.
== END 2017-02-08 10:20 | disposition home or self-care (01) ==
LOC: ED SRH 06:48
DX: E87.6 Hypokalemia (principal); R11.2 Nausea with vomiting, unspecified; R61 Generalized hyperhidrosis; R06.00 Dyspnea, unspecified; T40.4X5A Adverse effect of other synthetic narcotics, initial encounter; T39.395A Adverse effect of other nonsteroidal anti-inflammatory drugs [NSAID], initial encounter; G89.29 Other chronic pain; K21.9 Gastro-esophageal reflux disease without esophagitis; I10 Essential (primary) hypertension; Z79.899 Other long term (current) drug therapy; Z87.891 Personal history of nicotine dependence
CPT/HCPCS: 90100; 90616; 91320; 91585; 92610; 92720; 93004; 95059